=== PATIENT | female | born 2000 | race Caucasian/White ===

== ENCOUNTER 2021-11-20 16:57 | Outpatient (CLI) | payer SELFPAY | END 2021-11-20 16:58 | disposition home or self-care (01) | LOC: ANHLAB 17:01 | PROVIDERS: PCP Nurse Practitioner Family; Visit Provider Advanced Practice Midwife | DX: N92.6 Irregular menstruation, unspecified (principal) | CPT/HCPCS: 36415; 84702 ==

== ENCOUNTER 2022-06-23 10:49 | Emergency (ER) | payer OTHER, SELFPAY ==
--- NOTE | 2022-06-23 11:00 | ED.URI ---
HPI - URI/Sore Throat General Chief Complaint: Ear Stated Complaint: SORE THROAT Time Seen by Provider: 06/23/22 11:49 Source: patient and RN notes reviewed Mode of arrival: ambulatory Limitations: no limitations History of Present Illness HPI Narrative: 21-year-old female presents with concern for sore throat, postnasal drainage, cough when supine. Reports symptoms started yesterday. She denies known sick contacts. She reports she has not taken any [id number] medications. She denies shortness of breath, fever, bodies, chills, MD elicited complaint: sore throat Related Data Home Medications Medication Instructions Recorded Confirmed norelgestromin 150 mcg-e.estradiol 1 patch transdermal WEEKLY 06/23/22 06/23/22 35 mcg/24 hr weekly transderm patch (Xulane) Allergies Allergy/AdvReac Type Severity Reaction Status Date / Time cefuroxime Allergy Unknown Unknown Verified 06/23/22 11:30 Penicillins Allergy Unknown Unknown Verified 06/23/22 11:30 Review of Systems Review of Systems: CONSTITUTIONAL: Denies malaise, chills, sweats, or fever. EYES: Denies visual changes, redness, or discharge. ENT: Denies rhinorrhea, congestion, sinus pain, otalgia. Reports postnasal drainage and sore throat. CARDIOVASCULAR: Denies chest pain, palpitations, or edema. RESPIRATORY: Reports supine cough. Denies dyspnea. GASTROINTESTINAL: Denies abdominal pain, nausea, vomiting, diarrhea SKIN: Denies rash or itching. MUSCULOSKELETAL: Denies myalgia. NEUROLOGIC: Denies headache. All systems reviewed & are unremarkable except as noted in HPI and below PMFSH Past Medical History Medical History (Updated 06/23/22 @ 12:26 by Danita Covarrubias NP) Anxiety Family History Family History (Updated 07/22/14 @ 07:13 by DOCTOR UNKNOWN) Grandparent Hypertension Carcinoma of colon Family history of heart disease in male family member before age 55 Diabetes mellitus Social History Social History Smoking status: Never smoker Second hand tobacco smoke exposure: No Gender identity (if verbalized by the patient): Female Comments At time of signature, agree with nursing past medical, surgical, social and family history. There is no relevant family history pertinent to the presenting complaint Exam Narrative: GENERAL: Well-appearing, well-nourished, and in no acute distress. HEAD: Normocephalic EYES: PERRLA, conjunctivae clear ENT: Nares clear, clear discharge. Mucous membranes moist. TM pearly ayon with sharp light reflex bilaterally; no tragal tenderness. Oropharynx erythematous without lesions. Tonsils not enlarged and without exudate, no drooling, no hoarseness, no trismus, uvula midline. NECK: Supple. No lymphadenopathy CHEST: Clear to auscultation, breath sounds equal. No wheezing, rhonchi, rales, or stridor. No respiratory distress, speaks in full sentences. HEART: Regular rate and rhythm. No murmur heard. SKIN: Warm, dry, no rash. NEURO: Alert and oriented x3. PSYCH: Normal mood and affect Course Course Emergency Course: Patient is aware of diagnosis, understands and agrees to treatment plan. Anticipatory guidance given. Patient agrees to follow-up as directed and is aware of reasons to seek care at the emergency department. Portions of this record may have been created with voice recognition software Level of Care: Express Care Visit Vital Signs Vital signs: Reviewed. MDM - URI/Sore Throat MDM Narrative Medical decision making narrative: Differential diagnosis considered: Feng virus, strep pharyngitis, allergic rhinitis, upper respiratory tract infection, sinusitis, rhinosinusitis, nasopharyngitis. viral pharyngitis, otitis media, otitis externa, pneumonia, bronchitis, viral cough syndrome, viral syndrome, and influenza. Exam findings show no acute concerns or changes; patient is non-toxic appearing and is in no distress. Patient is appropriate fo
[2022-06-23 11:31] VITALS: BP 118/82; PULSE 88; RESP 16; TEMP 36.8; O2SAT 100
== END 2022-06-23 12:37 | disposition home or self-care (01) ==
PROVIDERS: Emergency Provider Nurse Practitioner; PCP Nurse Practitioner Family
DX: J06.9 Acute upper respiratory infection, unspecified (principal); Z20.822 Contact with and (suspected) exposure to COVID-19
CPT/HCPCS: 87081; 87426; 87880; 99213; C9803; G0463

== ENCOUNTER 2022-08-08 08:39 | Outpatient (CLI) | payer OTHER, SELFPAY ==
[2022-08-08 09:10] LABS: Basophils Absolute Auto 0.1 K/mm3 (0.0-0.1); Basophils Percent Auto 0.9 % (0.2-1.2); Eosinophils Absolute Auto 0.3 K/mm3 (0-0.3); Eosinophils Percent Auto 4.9 % (0-4.4); Hematocrit 35.1 % (37.0-47.0); Hemoglobin 10.7 g/dL (12.0-15.0); Immature Granulocyte Absolute 0.02 K/mm3 (0.00-0.031); Immature Granulocyte Percent A 0.3 % (0-0.5); Lymphocytes Absolute Auto 1.83 K/mm3 (0.9-3.2); Lymphocytes Percent Auto 28.6 % (18.3-44.2); Mean Corpuscular HGB Conc 30.5 g/dl (32-36); Mean Corpuscular Hemoglobin 24.5 pg (26-34); Mean Corpuscular Volume 80.5 fl (80-100); Mean Platelet Volume 9.2 fl (7.4-10.4); Monocytes Absolute Auto 0.4 K/mm3 (0.1-0.6); Monocytes Percent Auto 6.9 % (2.6-8.5); Neutrophils Absolute Auto 3.7 K/mm3 (1.3-6.7); Neutrophils Percent Auto 58.4 % (45.5-73.1); Platelet Count Result 353 k/mm3 (150-375); Red Blood Count 4.36 M/mm3 (4.2-5.4); White Blood Count 6.4 K/mm3 (4.5-10.0)
[2022-08-08 09:15] LABS: Appearance Urine Clear (Clear); Bilirubin Urine Negative (Negative); Blood Urine Negative (Negative); Color Urine Yellow (Yellow); Glucose Urine UA Negative (Negative); Ketones Urine Negative (Negative); Leukocyte Esterase Ur Negative LEU/UL (NEGATIVE); Nitrate Urine Negative (Negative); Protein Urine Negative (Negative); Specific Grav Ur >= 1.030 (1.001-1.035); Urobilinogen Urine 0.2 mg/dL (<2.0)
[2022-08-08 09:19] LABS: Add Urine Microscopic? NO
[2022-08-08 09:22] LABS: Alanine Aminotransferase 15 U/L (6-35); Albumin Level 4.4 g/dL (3.5-5.1); Alkaline Phosphatase 55 U/L (38-126); Anion Gap 10 mmol/L (8-16); Aspartate Amino Transferase 24 U/L (14-36); Bilirubin,Total 0.7 mg/dL (0.2-1.3); Blood Urea Nitrogen 11 mg/dL (7-17); Calcium 9.4 mg/dL (8.4-10.2); Carbon Dioxide 24 mmol/L (22-30); Chloride 103 mmol/L (98-107); Cholesterol 238 mg/dL (0-200); Estimated Glomerular Filt Rate > 60; Glucose 98 mg/dL (65-110); HDL Direct 80 mg/dL; Potassium 3.9 mmol/L (3.4-5.0); Sodium 137 mmol/L (137-145); Triglycerides 188 mg/dL (<150)
[2022-08-08 09:32] LABS: LDL Cholesterol Direct 109 mg/dL
[2022-08-08 10:27] LABS: Folic Acid 12.5 ng/mL (2.76->20)
== END 2022-08-08 08:40 | disposition home or self-care (01) ==
LOC: ANHLAB 08:41
PROVIDERS: PCP Nurse Practitioner Family; Visit Provider Nurse Practitioner Family
DX: Z00.00 Encounter for general adult medical examination without abnormal findings (principal); Z13.0 Encounter for screening for diseases of the blood and blood-forming organs and certain disorders involving the immune mechanism; Z13.6 Encounter for screening for cardiovascular disorders; Z13.29 Encounter for screening for other suspected endocrine disorder
CPT/HCPCS: 36415; 80053; 80061; 81003; 82607; 82746; 84443; 85025

== ENCOUNTER 2022-08-22 10:57 | Outpatient (CLI) | payer OTHER, SELFPAY ==
[2022-08-22 18:54] LABS: Iron 30 ug/dL (37-170)
[2022-08-22 19:14] LABS: Percent Iron Saturation 6 % (20-50)
[2022-08-22 19:29] LABS: Ferritin 5.37 ng/mL (6.24-137)
== END 2022-08-22 10:58 | disposition home or self-care (01) ==
LOC: ANHGOSHLAB 11:01
PROVIDERS: PCP Nurse Practitioner Family; Visit Provider Nurse Practitioner Family
DX: D64.9 Anemia, unspecified (principal)
CPT/HCPCS: 36415; 82728; 83540; 83550

== ENCOUNTER 2022-11-07 14:37 | Emergency (ER) | payer OTHER, SELFPAY ==
--- NOTE | ~2022-11-07 | XR_ITS ---
Clinical Indication: Chest pain PA and lateral views of the chest: Comparison: 11/15/2021 Findings: The lungs are clear, without evidence of focal consolidation or pleural effusion. Cardiome diastinal silhouette is within normal limits. Bones and soft tissues are unremarkable. Impression: Normal chest. Reviewed, dictated and finalized at location [] CAL RECORDS TECH Impression: Normal chest.
[2022-11-07 14:40] VITALS: BP 142/93; PULSE 86; RESP 14; TEMP 37; O2SAT 100
--- NOTE | 2022-11-07 14:40 | ECG_ITS ---
Measurements Intervals [place] Rate: 81 P: 67 TX: 141 QRS: 51 QRSD: 86 T: 40 QT: 367 QTc: 426 Interpretive Statements SINUS RHYTHM NORMAL EKG NO PREVIOUS ECG AVAILABLE FOR COMPARISON Electronically Signed On 11-07-2022 15:50:39 INSTRUMENT TESTER by Davina Dennis M.D.
--- NOTE | 2022-11-07 15:13 | ED.CHESTPAIN ---
HPI - Chest Pain General Chief Complaint: Chest Pain Stated Complaint: chest pain/jaw pain Time Seen by Provider: 11/07/22 14:42 History of Present Illness HPI narrative: 22-year-old female history of anemia and anxiety presents the emergency room for evaluation of midsternal chest pain that. States pain has been present for a month, says its intermittent and feels like twisting sensation. Also complaining of right jaw pain. Denies any alleviating or aggravating factors. Denies shortness of breath or difficulty breathing. Denies recent upper respiratory symptoms. Has not evaluated by any other provider for the symptoms. Admits to a history of anxiety attacks, states that this is different. Denies palpitations. States the pain has gotten worse over the last 24 hours. Related Data Home Medications Medication Instructions Recorded Confirmed norelgestromin 150 mcg-e.estradiol 1 patch transdermal WEEKLY 06/23/22 09/17/22 35 mcg/24 hr weekly transderm patch (Xulane) ferrous sulfate 325 mg (65 mg 325 mg PO DAILY 09/17/22 09/17/22 iron) tablet (FeroSul) mecobalamin (vitamin B12) PO 09/17/22 09/17/22 Allergies Allergy/AdvReac Type Severity Reaction Status Date / Time cefuroxime Allergy Unknown Unknown Verified 11/07/22 15:10 Penicillins Allergy Unknown Unknown Verified 11/07/22 15:10 Review of Systems Review of Systems: CONSTITUTIONAL: Denies fever, chills, or sweats. EYES: Denies visual changes, redness, or discharge. ENT: Denies rhinorrhea, congestion, sore throat, or otalgia. CARDIOVASCULAR: Reports chest pain RESPIRATORY: Denies cough or dyspnea. GASTROINTESTINAL: Denies abdominal pain, nausea, vomiting, or diarrhea. GENITOURINARY: Denies dysuria or hematuria. SKIN: Denies rash or itching. MUSCULOSKELETAL: Denies back pain, joint pain, or myalgia. NEUROLOGIC: Denies headache, numbness, dizziness, or weakness. PSYCHIATRIC: Denies anxiety or depression. [facility] Past Medical History Medical History Anemia Anxiety B12 deficiency Depression with anxiety Encounter to establish care Heartburn Iron deficiency anemia Seasonal allergies Family History Family History Grandparent Hypertension Carcinoma of colon Family history of heart disease in male family member before age 55 Diabetes mellitus Social History Social History Smoking status: Never smoker Second hand tobacco smoke exposure: No Alcohol intake: current Drinks per week: 1 Substance use: never Substance use type: does not use Lack of Transportation: No Lack of Food: Never True Current Housing: I Have Housing Concerned About Future Housing: No Difficulty Paying Gas/Electric Bills: No Difficulty Paying for Meds: No Currently Unemployed: No Education: High School Diploma/GED Difficulty w/ Childcare or Family Care: No Gender identity (if verbalized by the patient): Female Exam Narrative: GENERAL: Well-appearing, well-nourished, no physical limitations, and in no acute distress. HEAD: Normocephalic, atraumatic. EYES: Conjunctivae normal, PERRLA and EOMI. CHEST: Clear to auscultation. No respiratory distress. No wheezes rales or rhonchi. HEART: Regular rate and rhythm. No murmur heard. Normal peripheral pulses. ABDOMEN: Soft, nontender, nondistended, normal active bowel sounds. EXTREMITIES: Normal range of motion. No edema. No clubbing or cyanosis SKIN: Warm, dry, no rash. No noted wounds NEURO: No focal deficits. Alert and oriented x3. MAEW. CN's II-XI intact bilaterally, normal gait PSYCH: Cooperative. Normal mood and affect. Course Vital Signs Vital signs: Vital Signs Temperature 37.0 C 11/07/22 14:40 Pulse Rate 86 11/07/22 14:40 Respiratory Rate 14 11/07/22 14:40 Blood Pressure 142/93 H 11/07/22 14:40 Pulse Oximetry 100
[2022-11-07 15:26] LABS: Troponin I < 0.012 ng/mL (0.000-0.034)
[2022-11-07 16:33] VITALS: BP 120/78; PULSE 87; RESP 16; O2SAT 99
== END 2022-11-07 16:35 | disposition home or self-care (01) ==
LOC: ANHED 16:26
PROVIDERS: Emergency Medicine; Emergency Provider Nurse Practitioner Family; PCP Nurse Practitioner Family
DX: R07.2 Precordial pain (principal); D50.9 Iron deficiency anemia, unspecified; E53.8 Deficiency of other specified B group vitamins; F41.8 Other specified anxiety disorders
CPT/HCPCS: 36415; 71046; 84484; 93005; 99284

== ENCOUNTER 2022-11-27 15:49 | Outpatient (CLI) | payer OTHER, SELFPAY ==
--- NOTE | ~2022-11-27 | XR_ITS ---
EXAM: XR lumbar spine min 4V DATE: 11/27/2022 16:05 HISTORY: M54.50 - Low back pain, unspecified . COMPARISON: 12/05/2019. FINDINGS: Mild lumbar scoliosis 5 nonrib-bearing lumbar-type vertebral bodies. Pedicles intact. No pa rs defect. Normal vertebral body alignment. Vertebral body heights preserved. Disc spaces maintained. Normal facets and posterior elements. No fracture or dislocation. IMPRESSION: Mild lumbar scoliosis. Reviewed, dictated and finalized at location K. IT DRESSER IMPRESSION: Mild lumbar scoliosis.
== END 2022-11-27 15:50 ==
PROVIDERS: PCP Nurse Practitioner Family; Visit Provider Nurse Practitioner Family
DX: M54.50 Low back pain, unspecified (principal)
CPT/HCPCS: 72110

== ENCOUNTER 2023-01-14 12:44 | Emergency (ER) | payer OTHER, SELFPAY ==
--- NOTE | 2023-01-14 12:59 | ED.URI ---
HPI - URI/Sore Throat General Chief Complaint: Upper Respiratory Infection Stated Complaint: sore throat, bodyaches Time Seen by Provider: 01/14/23 13:32 Source: patient and RN notes reviewed Mode of arrival: ambulatory Limitations: no limitations History of Present Illness HPI Narrative: 22-year-old female presents concern for sore throat, body aches this started last night. She denies fever, nasal congestion, rhinorrhea, cough. MD elicited complaint: sore throat Related Data Home Medications Medication Instructions Recorded Confirmed norelgestromin 150 mcg-e.estradiol 1 patch transdermal WEEKLY 06/23/22 01/14/23 35 mcg/24 hr weekly transderm patch (Xulane) ferrous sulfate 325 mg (65 mg 325 mg PO DAILY 09/17/22 01/14/23 iron) tablet (FeroSul) mecobalamin (vitamin B12) 1,000 mcg PO DAILY 09/17/22 01/14/23 Allergies Allergy/AdvReac Type Severity Reaction Status Date / Time cefuroxime Allergy Unknown Unknown Verified 01/14/23 13:03 Penicillins Allergy Unknown Unknown Verified 01/14/23 13:03 Review of Systems Review of Systems: CONSTITUTIONAL: Reports malaise. Denies chills, sweats, or fever. EYES: Denies visual changes, redness, or discharge. ENT: Denies rhinorrhea, congestion, sinus pain, otalgia. Reports sore throat. CARDIOVASCULAR: Denies chest pain, palpitations, or edema. RESPIRATORY: Denies cough. Denies dyspnea. GASTROINTESTINAL: Denies abdominal pain, nausea, vomiting, diarrhea SKIN: Denies rash or itching. MUSCULOSKELETAL: Reports myalgia. NEUROLOGIC: Denies headache. All systems reviewed & are unremarkable except as noted in HPI and below PMFSH Past Medical History Medical History (Updated 01/14/23 @ 13:36 by Danita Covarrubias NP) Anemia Anxiety B12 deficiency Depression Depression with anxiety Encounter to establish care Fall Heartburn Insomnia Iron deficiency anemia Low back pain Seasonal allergies Family History Family History Grandparent Hypertension Carcinoma of colon Family history of heart disease in male family member before age 55 Diabetes mellitus Social History Social History (System 11/29/22 @ 11:23 by Anabelle Velasquez) Smoking status: Never smoker Second hand tobacco smoke exposure: No Alcohol intake: current Drinks per week: 1 Substance use: never Substance use type: does not use Lack of Transportation: No Lack of Food: Never True Current Housing: I Have Housing Concerned About Future Housing: No Difficulty Paying Gas/Electric Bills: No Difficulty Paying for Meds: No Currently Unemployed: No Education: High School Diploma/GED Difficulty w/ Childcare or Family Care: No Gender identity (if verbalized by the patient): Female Comments At time of signature, agree with nursing past medical, surgical, social and family history. There is no relevant family history pertinent to the presenting complaint Exam Narrative: GENERAL: Well-appearing, well-nourished, and in no acute distress. HEAD: Normocephalic EYES: PERRLA, conjunctivae clear ENT: Nares clear, no discharge. Mucous membranes moist. TM pearly ayon with discharge light reflex bilaterally; no tragal tenderness. Oropharynx erythematous without lesions. Tonsils not enlarged and without exudate, no drooling, no hoarseness, no trismus, uvula midline. NECK: Supple. No lymphadenopathy CHEST: Clear to auscultation, breath sounds equal. No wheezing, rhonchi, rales, or stridor. No respiratory distress, speaks in full sentences. HEART: Regular rate and rhythm. No murmur heard. SKIN: Warm, dry, no rash. NEURO: Alert and oriented x3. PSYCH: Normal mood and affect Course Course Emergency Course: Patient is aware of diagnosis, understands and agrees to treatment plan. Anticipatory guidance given. Patient agrees to follow-up as directed and is aware of reasons to seek care at the emergency department. Portions of this record ma
[2023-01-14 13:02] VITALS: BP 140/92; PULSE 119; RESP 16; TEMP 36.6; O2SAT 99
== END 2023-01-14 13:43 | disposition home or self-care (01) ==
PROVIDERS: Emergency Provider Nurse Practitioner; PCP Nurse Practitioner Family
DX: J02.0 Streptococcal pharyngitis (principal); D50.9 Iron deficiency anemia, unspecified; E53.8 Deficiency of other specified B group vitamins; R12 Heartburn
CPT/HCPCS: 87880; 99213; G0463

== ENCOUNTER 2023-07-04 15:29 | Emergency (ER) | payer BC, SELFPAY ==
--- NOTE | 2023-07-04 15:31 | ED.NAVMDI ---
HPI - Nausea/Vomiting/Diarrhea General Chief complaint: Nausea/Vomiting/Diarrhea Stated complaint: nausea,heart racing Time Seen by Provider: 07/04/23 15:30 Source: patient Mode of arrival: ambulatory Limitations: no limitations History of Present Illness HPI Narrative: Huong is a 22-year-old female patient presenting to the clinic today with complaints nausea, abdomen cramping, dizziness, and palpitations. She reports symptoms started this morning around 9:00 a.m. when she was at work. 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 States she vomited twice this morning and is still having nausea. Denies any chest pain, shortness of breath, fever, URI symptoms, or diarrhea. Denies use of recreational drugs or energy drinks. Last menstrual period was 2 weeks ago. History of migraine YO but denies current headache, anemia, B12 deficiency, anxiety, depression, and GERD. No know exposure to anyone with COVID, flu, or strep. Patient is currently taking Flagyl for trich. Related Data Home Medications Medication Instructions Recorded Confirmed norelgestromin 150 mcg-e.estradiol 1 patch transdermal WEEKLY 06/23/22 07/04/23 35 mcg/24 hr weekly transderm patch (Xulane) metronidazole 500 mg tablet 500 mg PO BID 07/04/23 07/04/23 Allergies Allergy/AdvReac Type Severity Reaction Status Date / Time cefuroxime Allergy Unknown Unknown Verified 07/04/23 15:41 Penicillins Allergy Unknown Unknown Verified 07/04/23 15:41 Review of Systems Review of Systems: Pertinent positives per HPI. Patient denies any fever, chills, rash, headache, visual changes, dizziness, cough, runny nose, sore throat, shortness of breath, chest pain, vomiting, diarrhea, constipation, abdominal pain, or any urinary issues. REPLACED BY [facility] Past Medical History Medical History Anemia Anxiety B12 deficiency Depression Depression with anxiety Encounter to establish care Fall Gastroesophageal reflux disease Heartburn Insomnia Iron deficiency anemia Low back pain Seasonal allergies Family History Family History Grandparent Hypertension Carcinoma of colon Family history of heart disease in male family member before age 55 Diabetes mellitus Social History Social History Smoking status: Never smoker Second hand tobacco smoke exposure: No Alcohol intake: current Drinks per week: 1 Substance use: never Substance use type: does not use Lack of Transportation: No Lack of Food: Never True Current Housing: I Have Housing Concerned About Future Housing: No Difficulty Paying Gas/Electric Bills: No Difficulty Paying for Meds: No Currently Unemployed: No Education: High School Diploma/GED Difficulty w/ Childcare or Family Care: No Gender identity (if verbalized by the patient): Female Comments At the time of my signature, I reviewed and agree with the nursing past medical, surgical, social, and family history. There is no relevant family history pertinent to the patient complaint. Exam Narrative: General: Well-developed, well nourished, in no apparent distress. Head: Normocephalic, atraumatic. Cardio: Tachycardic rate and rhythm, heart rate 106, s1 and s2 normal, no murmur appreciated. Resp: Clear to auscultation bilaterally, no rhonchi, rales, wheezing or rubs. Abdomen: Soft, pliable, bowel sounds present in all quadrants, non-tender to palpation, no organomegly, no CVAT tenderness. Course Course Emergency Course: Portions of this record may have been created with voice recognition software. Level of Care: Express Care Visit Vital Signs Vital signs: Vital signs reviewed MDM - Nausea/Vomiting/Diarrhea MDM Narrative Medical decision making narrative: At the time of visit patient is resting on the exam table. UA is positive for 3+
[2023-07-04 15:40] VITALS: BP 140/87; PULSE 100; RESP 18; TEMP 36.7; O2SAT 100
--- NOTE | 2023-07-04 15:45 | ECG_ITS ---
Measurements Intervals [place] Rate: 106 P: 76 OR: 135 QRS: 42 QRSD: 98 T: 22 QT: 326 QTc: 435 Interpretive Statements SINUS TACHYCARDIA NONSPECIFIC T-WAVE ABNORMALITY ABNORMAL RHYTHM ECG COMPARED TO ECG 11/07/2022 14:53:04 SINUS TACHYCARDIA NOW PRESENT T-WAVE ABNORMALITY NOW PRESENT Electronically Signed On 07-05-2023 8:51:00 CDT by Amanda Robertson M.D.
[2023-07-04] MEDS: ONDANSETRON HCL ODT 4 MG TABLET SUBLINGUAL (15:59)
[2023-07-04 16:04] LABS: Glucose Point of Care 127 mg/dl (65-105)
[2023-07-04 19:40] VITALS: BP 127/81; BP 129/85; PULSE 112; PULSE 95
[2023-07-04 19:41] VITALS: BP 126/89; PULSE 113
== END 2023-07-04 16:35 | disposition home or self-care (01) ==
PROVIDERS: Emergency Provider Nurse Practitioner Family; PCP Nurse Practitioner Family
DX: E86.0 Dehydration (principal); R11.2 Nausea with vomiting, unspecified; R12 Heartburn; K21.9 Gastro-esophageal reflux disease without esophagitis; F41.9 Anxiety disorder, unspecified; F32.A Depression, unspecified
CPT/HCPCS: 81003; 82948; 87086; 93005; 99213; A9270; G0463

== ENCOUNTER 2023-12-12 09:16 | Emergency (ER) | payer BC, SELFPAY ==
--- NOTE | 2023-12-12 09:18 | ED.URI ---
HPI - URI/Sore Throat General Chief Complaint: Upper Respiratory Infection Stated Complaint: Sore Throat Time Seen by Provider: 12/12/23 09:18 Source: patient Mode of arrival: ambulatory Limitations: no limitations History of Present Illness HPI Narrative: Patient is a 23-year-old female that presents with sore throat that started yesterday, worsening today. Patient also has congestion and drainage down the back of her throat. Patient has not taken anything for symptoms. Patient states she has history of strep throat. Denies any fever, chills, nausea, vomiting, diarrhea. Related Data Home Medications Medication Instructions Recorded Confirmed multivitamin with iron 1 tablet PO DAILY 11/21/23 11/21/23 norethindrone ac-eth estradiol PO 11/21/23 11/21/23 [Aurovela 1.5/ (21)] Allergies Allergy/AdvReac Type Severity Reaction Status Date / Time cefuroxime Allergy Unknown Unknown Verified 11/21/23 15:33 Penicillins Allergy Unknown Unknown Verified 11/21/23 15:33 Review of Systems Review of Systems: All systems reviewed & are unremarkable except as noted in HPI and below Constitutional: Constitutional: Denies body ache(s), Denies fever(s), Denies headache(s), Denies malaise and Denies weakness Eyes: Eyes: Denies loss of vision ENT: Denies otalgia, Denies headache(s), Reports nasal congestion, Denies sinus pain and Reports sore throat Cardiovascular: Cardiovascular: Denies chest pain, Denies irregular heart rhythm and Denies dyspnea Respiratory: Respiratory: Denies cough and Denies dyspnea Gastrointestinal: Gastrointestinal: Denies abdominal pain, Denies melena, Denies hematochezia, Denies diarrhea, Denies nausea and Denies vomiting Musculoskeletal: Musculoskeletal: Denies back pain, Denies myalgias and Denies arthralgias Integumentary/Breasts: Skin/Breast: Denies pruritus and Denies rash Neurologic: Denies headache(s), Denies loss of vision and Denies weakness Psychiatric: Psychiatric: Reports no additional psychiatric complaints PMFSH Past Medical History Medical History ADHD Anemia Anxiety B12 deficiency Depression Depression with anxiety Encounter to establish care Fall Gastroesophageal reflux disease Heartburn Insomnia Iron deficiency anemia Low back pain Seasonal allergies Family History Family History (Reviewed 11/21/23 @ 15:35 by Joseph Breen [facility]) Grandparent Hypertension Carcinoma of colon Family history of heart disease in male family member before age 55 Diabetes mellitus Social History Social History (Reviewed 11/21/23 @ 15:35 by Joseph Breen [facility]) Smoking status: Never smoker Second hand tobacco smoke exposure: No Alcohol intake: current Drinks per week: 1 Substance use: never Substance use type: does not use Lack of Transportation: No Lack of Food: Never True Current Housing: I Have Housing Concerned About Future Housing: No Difficulty Paying Gas/Electric Bills: No Difficulty Paying for Meds: No Currently Unemployed: No Education: High School Diploma/GED Difficulty w/ Childcare or Family Care: No Gender identity (if verbalized by the patient): Female Comments At time of signature, agree with nursing past medical, surgical, social and family history. There is no relevant family history pertinent to the presenting complaint. Exam Const: General: cooperative, healthy appearing, comfortable, no acute distress and well nourished Nutritional Appearance: well nourished Orientation/consciousness: patient oriented x3 Limitations: no limitations HENMT: Head: normal to inspection, normocephalic and atraumatic Ears: hearing grossly normal bilaterally, external ears normal, TM's normal bilaterally and EAC's normal Face/Nose/Sinus: Normal external nose present, Normal nares present, Normal nasal mucous membranes and turbinates present, Normal septum present, normal facial exam, sinuses n
[2023-12-12 09:25] VITALS: BP 138/76; PULSE 80; RESP 18; TEMP 36.5; O2SAT 99
== END 2023-12-12 09:45 | disposition home or self-care (01) ==
PROVIDERS: Emergency Provider Nurse Practitioner Family; PCP Nurse Practitioner Family
DX: J06.9 Acute upper respiratory infection, unspecified (principal); J02.9 Acute pharyngitis, unspecified; D64.9 Anemia, unspecified; K21.9 Gastro-esophageal reflux disease without esophagitis; D50.9 Iron deficiency anemia, unspecified
CPT/HCPCS: 87081; 87880; 99213; G0463

== ENCOUNTER 2024-03-21 14:27 | Emergency (ER) | payer BC, SELFPAY ==
[2024-03-21 14:34] VITALS: BP 129/90; PULSE 98; RESP 18; TEMP 36.4; O2SAT 99
--- NOTE | 2024-03-21 14:40 | ED.EXTPRO ---
HPI - Extremity Problem General Chief complaint: Extremity Problem,Nontraumatic Stated complaint: Toe Pain Rt Foot Time Seen by Provider: 03/21/24 14:40 Source: patient, RN notes reviewed and old records reviewed Mode of arrival: ambulatory Limitations: no limitations History of Present Illness HPI Narrative: 23-year-old female presents to the [facility] with right great toe ingrown toenail. Patient states she keeps trimming the toenail back hoping it would get better but still having pain. No redness or swelling noted. Tender to touch. Ingrown nail to the medial aspect of the right great toe Patient was hoping to get the toenail cut out. Explained to patient that we do not do ingrown toenails are cut out toenails. Will refer to Podiatry Related Data Allergies Allergy/AdvReac Type Severity Reaction Status Date / Time cefuroxime Allergy Unknown Unknown Verified 03/21/24 14:42 Penicillins Allergy Unknown Unknown Verified 03/21/24 14:42 Review of Systems Review of Systems: All systems reviewed & are unremarkable except as noted in HPI and below Constitutional: Constitutional: Reports no additional constitutional complaints Eyes: Eyes: Reports no additional eye complaints ENT: Reports system reviewed and no additional complaints, except as documented Cardiovascular: Cardiovascular: Reports no additional cardiovascular complaints, Denies chest pain and Denies dyspnea Respiratory: Respiratory: Reports no additional respiratory complaints, Denies chest congestion, Denies cough and Denies dyspnea Gastrointestinal: Gastrointestinal: Reports no additional gastrointestinal complaints, Denies abdominal pain, Denies nausea and Denies vomiting Musculoskeletal: Musculoskeletal: Reports as per HPI Integumentary/Breasts: Skin/Breast: Reports system reviewed and no additional complaints, except as docu Neurologic: Reports system reviewed and no additional complaints, except as documented Psychiatric: Psychiatric: Reports no additional psychiatric complaints Allergic/Immunologic: Allergic/Immunologic: Reports no additional allergic/immunologic complaints PMFSH Past Medical History Medical History ADHD Anemia Anxiety B12 deficiency Depression Depression with anxiety Encounter to establish care [place] Gastroesophageal reflux disease Heartburn Insomnia Iron deficiency anemia Low back pain Seasonal allergies Family History Family History Grandparent Hypertension Carcinoma of colon Family history of heart disease in male family member before age 55 Diabetes mellitus Social History Social History Smoking status: Never smoker Second hand tobacco smoke exposure: No Alcohol intake: current Drinks per week: 1 Substance use: never Substance use type: does not use Lack of Transportation: No Lack of Food: Never True Current Housing: I Have Housing Concerned About Future Housing: No Difficulty Paying Gas/Electric Bills: No Difficulty Paying for Meds: No Currently Unemployed: No Education: High School Diploma/GED Difficulty w/ Childcare or Family Care: No Gender identity (if verbalized by the patient): Female Comments At the time of my signature, I reviewed and agree with the nursing past medical, surgical, social, and family history. There is no relevant family history pertinent to the patient complaint. Exam Const: General: cooperative, healthy appearing, comfortable, no acute distress, well developed, alert and well nourished Nutritional Appearance: well nourished Orientation/consciousness: patient oriented x3 Limitations: no limitations HENMT: Head: normal to inspection Ears: hearing grossly normal bilaterally and external ears normal Face/Nose/Sinus: Normal external nose present, Normal nares present, Normal nasal mucous mem
== END 2024-03-21 14:53 | disposition home or self-care (01) ==
PROVIDERS: Emergency Provider Nurse Practitioner; PCP Nurse Practitioner Family
DX: L60.0 Ingrowing nail (principal); K21.9 Gastro-esophageal reflux disease without esophagitis
CPT/HCPCS: 99211; G0463